=== PATIENT | male | born 1950 | race African-American/Black ===

== ENCOUNTER 2019-05-31 17:42 | Emergency (ER) | payer OTHER ==
[~2019-05-31] VITALS: Ht 172.7 cm; Wt 63.5 kg
[2019-05-31 20:19] VITALS: BP 126/86
== END 2019-05-31 20:49 | disposition home or self-care (01) ==
LOC: ER 17:54
DX: D17.9 Benign lipomatous neoplasm, unspecified (principal); R51 Headache
CPT/HCPCS: 70450